=== PATIENT | male | born 1975 | race Caucasian/White ===

== ENCOUNTER 2020-07-05 16:06 | Observation (INO) ==
[2020-07-05] MEDS ORDERED: 0.9 % Sodium Chloride 1,000 ML IVC ONE ×2 (16:18→17:04)
[2020-07-05 16:36] LABS: Basophils # 0.1 K/mcL (0.0-0.2); Basophils % 0.6 %; Eosinophils % 0.4 %; Hematocrit 45.3 % (37.5-50.1); Hemoglobin 14.7 g/dL (12.9-16.9); Immature Granulocytes % 0.9 % (0-4); Lymphocytes # 2.5 K/mcL (0.6-4.6); Lymphocytes % 22.5 %; Mean Corpuscular HGB Conc 32.5 g/dL (31.6-35.5); Mean Corpuscular Hemoglobin 27.5 pg (28.0-33.3); Mean Corpuscular Volume 84.8 fL (83.0-100.0); Mean Platelet Volume 11.3 fL (9.4-12.4); Monocytes # 0.9 K/mcL (0.0-1.3); Monocytes % 7.7 %; Neutrophils # 7.6 K/mcL (1.6-8.9); Platelet Count 274 K/mcL (140-400); Red Blood Count 5.34 M/mcL (4.19-5.50); Red Cell Distribution Width 14.3 % (11.5-14.5); Segmented Neutrophils % 67.9 %; White Blood Count 11.2 K/mcL (4.3-11.1)
[2020-07-05 16:54] LABS: BUN/Creatinine Ratio 21 (6-26); Blood Urea Nitrogen 30 mg/dL (6-20); Calcium 10.1 mg/dL (8.6-10.3); Carbon Dioxide 21 mEq/L (23-29); Chloride 95 mEq/L (98-107); Glucose 337 mg/dL (70-105); Magnesium 1.8 mg/dL (1.6-2.6); Osmolality,Calculated 293 (280-300); Potassium 4.4 mEq/L (3.5-5.1); Sodium 132 mEq/L (136-145); Troponin I < 0.03 ng/mL (< 0.04); eGFR For African Americans > 60 (> 60); eGFR For Non-African Americans 53 (> 60)
[2020-07-05] MEDS ORDERED: *HR* Dextrose 50 % in Water (Vial) 50 ML VIAL IVP PRN ×2 (17:04→20:45)
[2020-07-05] MEDS ORDERED: D5% in 0.45% NACL w KCl 20 MEQ/1,000 ML MLS IVC PRN (17:04)
[2020-07-05] MEDS ORDERED: D5% in 0.45% NACL 1,000 ML IVC PRN (17:04)
[2020-07-05] MEDS ORDERED: Insulin Human Regular 100 UNIT in 0.9 % Sodium Chloride 100 ML IVC SCH (17:15)
[2020-07-05 18:52] LABS: VBG HCO3 27 mEq/L (21-27); VBG PCO2 53 mmHg (41-51); VBG PH 7.32 pH Units (7.32-7.42); VBG PO2 34 mmHg (25-50)
[2020-07-05] MEDS ORDERED: Naloxone 0.4 MG/ML INJ IVP PRN (19:25)
[2020-07-05 19:46] LABS: Bilirubin,Urine Negative (Negative); Blood,Urine Negative (Negative); Clarity,Urine Clear (Clear); Color,Urine Light-Yellow (Yellow); Glucose,Urine (UA) >=1000 mg/dL (Normal); Ketones,Urine Negative (Negative); Leukocyte Esterase,Urine Negative (Negative); Nitrite,Urine Negative (Negative); PH,Urine 5.5 pH Units (5.0-8.0); Protein,Urine Trace mg/dL (Neg-Trace); RBC,Urine 0-3 per hpf (0-3); Specific Gravity,Urine 1.017 (1.010-1.025); Urobilinogen,Urine Normal (Normal); WBC,Urine 0-3 per hpf (0-3)
[2020-07-05] MEDS ORDERED: Dextrose Gel 15 GM/37.5 ML TUBE PO PRN ×2 (20:45)
[2020-07-05] MEDS ORDERED: D5% in Water 1,000 ML IVC PRN (20:45)
[2020-07-05] MEDS ORDERED: Insulin DETEMIR 100 UNIT/ML X5UNITS SUBQ SCH (21:00)
[2020-07-05] MEDS: Insulin LISPRO 300 UNITS/3 ML VIAL SUBQ SCH (21:01)
[2020-07-05] MEDS: predniSONE 20 MG TABLET PO SCH (21:16)
[2020-07-05 21:42] LABS: BUN/Creatinine Ratio 25 (6-26); Blood Urea Nitrogen 26 mg/dL (6-20); Calcium 9.3 mg/dL (8.6-10.3); Carbon Dioxide 22 mEq/L (23-29); Chloride 100 mEq/L (98-107); Glucose 123 mg/dL (70-105); Osmolality,Calculated 284 (280-300); Potassium 3.8 mEq/L (3.5-5.1); Sodium 134 mEq/L (136-145); eGFR For African Americans > 60 (> 60); eGFR For Non-African Americans > 60 (> 60)
[2020-07-05] MEDS: Ipratropium/Albuterol Neb 3 ML IH SCH (22:21)
[2020-07-05] MEDS: 0.9 % Sodium Chloride 1,000 ML IVC SCH (22:31)
[2020-07-06] MEDS ORDERED: Ipratropium/Albuterol Neb 3 ML IH PRN (03:59)
[2020-07-06] MEDS: Ipratropium/Albuterol Neb 3 ML IH SCH (05:16)
[2020-07-06 06:32] LABS: Hematocrit 41.5 % (37.5-50.1); Mean Corpuscular HGB Conc 31.6 g/dL (31.6-35.5); Mean Corpuscular Volume 85.4 fL (83.0-100.0); Mean Platelet Volume 11.7 fL (9.4-12.4); Platelet Count 216 K/mcL (140-400); Red Blood Count 4.86 M/mcL (4.19-5.50); Red Cell Distribution Width 14.5 % (11.5-14.5); White Blood Count 9.1 K/mcL (4.3-11.1)
[2020-07-06 06:33] LABS: Hemoglobin 13.1 g/dL (12.9-16.9)
[2020-07-06 06:52] LABS: Magnesium 1.6 mg/dL (1.6-2.6); Phosphorous 3.2 mg/dL (2.7-4.5)
[2020-07-06 06:53] VITALS: BP 135/85
[2020-07-06 06:54] LABS: BUN/Creatinine Ratio 22 (6-26); Blood Urea Nitrogen 20 mg/dL (6-20); Calcium 9.2 mg/dL (8.6-10.3); Carbon Dioxide 23 mEq/L (23-29); Chloride 99 mEq/L (98-107); Glucose 194 mg/dL (70-105); Osmolality,Calculated 284 (280-300); Potassium 3.8 mEq/L (3.5-5.1); Sodium 133 mEq/L (136-145); eGFR For African Americans > 60 (> 60); eGFR For Non-African Americans > 60 (> 60)
[2020-07-06] MEDS: Insulin LISPRO 300 UNITS/3 ML VIAL SUBQ SCH (08:17)
[2020-07-06] MEDS: predniSONE 20 MG TABLET PO SCH ×2 (08:22→08:51)
[2020-07-06] MEDS: 0.9 % Sodium Chloride 1,000 ML IVC SCH (08:24)
[2020-07-06] MEDS ORDERED: Insulin DETEMIR 100 UNIT/ML X5UNITS SUBQ SCH ×2 (09:00→21:00)
[2020-07-07 08:04] LABS: Estimated Average Glucose 229 mg/dl; Hemoglobin A1C 9.6 %
== END 2020-07-06 11:01 | disposition home or self-care (01) ==
LOC: EMEROOARM 16:06 → 2NNU 16:06 → SUATTDRO 18:58 → 2ANU 19:35
PROVIDERS: ADMIT Internal Medicine; ATTEND Internal Medicine